=== PATIENT | male | born 1965 | race Caucasian/White ===

== ENCOUNTER 2024-06-18 12:59 | Emergency (ER) | payer MEDICARE, SELFPAY ==
[2024-06-18 13:13] VITALS: BP 153/71; PULSE 98; RESP 20; TEMP 36.5; O2SAT 96
--- NOTE | 2024-06-18 13:20 | ED.SKABFB ---
HPI - Skin/Abscess/Foreign Bdy General Chief complaint: Skin/Abscess/Foreign Body Stated complaint: redness and inflammation in armpit Time Seen by Provider: 06/18/24 13:15 Source: patient, RN notes reviewed and old records reviewed Mode of arrival: ambulatory Limitations: no limitations History of Present Illness HPI narrative: patient presents with complaints of redness, pain, and excoriation to left axilla. He reports that symptoms began a couple of months ago but are becoming much worse. He denies any injury or trauma. He has been using herbal medications to try to treat his symptoms, no relief. He voices no other concerns or complaints at this time. Denies any fever, chills, sweats Related Data Allergies Allergy/AdvReac Type Severity Reaction Status Date / Time erythromycin base AdvReac Intermediate Gastrointestinal Verified 06/18/24 13:20 Upset Penicillins AdvReac Intermediate Dyspnea / Verified 06/18/24 13:20 SOB Review of Systems Review of Systems: All systems reviewed & are unremarkable except as noted in HPI and below Constitutional: Constitutional: Reports no additional constitutional complaints ENT: Reports system reviewed and no additional complaints, except as documented Cardiovascular: Cardiovascular: Reports no additional cardiovascular complaints Respiratory: Respiratory: Reports no additional respiratory complaints Gastrointestinal: Gastrointestinal: Reports no additional gastrointestinal complaints Integumentary/Breasts: Skin/Breast: Reports system reviewed and no additional complaints, except as docu and Reports as per HPI PMFSH Comments At the time of my signature, I reviewed and agree with the nursing past medical, surgical, social, and family history. There is no relevant family history pertinent to the patient complaint. Exam Const: General: cooperative, no acute distress, alert and awake Orientation/consciousness: oriented to person, oriented to place and oriented to time HENMT: Head: normal to inspection Mouth: Yes moist mucous membranes Resp: Effort & Inspection: normal respiratory effort and able to speak in complete sentences Auscultation: clear to auscultation bilaterally, no crackles, no rales, no rhonchi and no wheezes Cardio: Palpation: normal PMI Rate: regular rate Rhythm: regular rhythm Heart sounds: S1 normal heart sound present and S2 normal heart sound present Skin: Other: left axilla with redness, excoriation. Appearance of skin to 11 x 7 cm area of left axilla is consistent with olu with secondary bacterial infection. No abscess, no induration Neuro: General: oriented to person, oriented to place and oriented to time Cranial nerves: Yes CN's II-XII intact bilaterally Psych: Appearance: grossly normal Thought process: Normal thought process present Insight: Good insight present (Psych) Judgement: Good judgement present (Psych) Course Course Level of Care: Express Care Visit Vital Signs Vital signs: Vital Signs Temperature 97.7 F 06/18/24 13:13 Pulse Rate 98 06/18/24 13:13 Respiratory Rate 20 06/18/24 13:13 Blood Pressure 153/71 H 06/18/24 13:13 Pulse Oximetry 96 06/18/24 13:13 Oxygen Delivery Room Air 06/18/24 13:13 Temperature 97.7 F 06/18/24 13:13 Pulse Rate 98 06/18/24 13:13 Respiratory Rate 20 06/18/24 13:13 Blood Pressure 153/71 H 06/18/24 13:13 Pulse Oximetry 96 06/18/24 13:13 Oxygen Delivery Room Air 06/18/24 13:13 Reviewed MDM - Skin/Abscess/Foreign Bdy MDM Narrative Medical decision making narrative: patient nontoxic appearing, stable for discharge drive on p.o. antibiotic and antifungal therapy. Fairly large area of left axilla with what appears to be yeast that has developed secondary bacterial infection. Discharge instructions reviewed with patient, as well as provided in writing per nursing staff. The instructions also include specific and strict return/GO TO THE ER as well as f/u information. All questions have been answered, and the patient deny any further questions with discharge and discharge plan. Some parts of this dictation were generated by voice recognition software and may contain typographical and/or grammatical inaccuracies. Differential Diagnosis Differential diagnosis: Likely abscess of skin or subcutaneous tissue, dermatophytosis, cellulitis and contact dermatitis Medical Records Attestation: I reviewed the patient's medical records. Discharge Plan Discharge Clinical Impression: Tinea Cellulitis Qualifiers: Site of cellulitis: extremity Site of cellulitis of extremity: axilla Laterality: left Qualified Code(s): L03.112 - Cellulitis of left axilla Patient Disposition: Home, Self-Care Condition: Stable Instructions: Antibiotic Form, Cellulitis (ED), Tinea Corporis (ED) Additional Instructions: Take medications as prescribed. Follow with primary care provider. Emergency department for new or worse symptoms Patient Language: [place] Prescriptions: New doxycycline hyclate 100 mg capsule 100 mg PO BID Qty: 20 0RF fluconazole [Diflucan] 200 mg tablet 200 mg PO DAILY Qty: 30 0RF nystatin-triamcinolone 100,000-0.1 unit/gram-% ointment 1 applic topical BID 14 Days Qty: 60 0RF Follow-up/Referrals: PHYSICIAN,[employer] [facility]ACHINE [Primary Care Provider] - Time of Disposition: 13:30
== END 2024-06-18 13:31 | disposition home or self-care (01) ==
PROVIDERS: Emergency Provider Nurse Practitioner Family; Referring Provider Emergency Medicine
DX: B35.4 Tinea corporis (principal); L03.112 Cellulitis of left axilla; I10 Essential (primary) hypertension
CPT/HCPCS: 99213; G0463